=== PATIENT | female | born 1960 | race Caucasian/White ===

== ENCOUNTER 2016-09-03 10:44 | Inpatient (IN) ==
--- NOTE | 2016-09-02 19:44 | Discharge Summary ---
<Amber Rodriguez Theresa - Last Filed: 09/02/16 19:41> Date of Encounter: 09/02/16 - Discharge Diagnosis (1) Arthritis of knee, left Priority: Primary Status: Acute (2) DMII (diabetes mellitus, type 2) Priority: Secondary Status: Chronic Qualifiers: Diabetes mellitus complication status: with unspecified complications Diabetes mellitus terminal gauger supervisor insulin use: unspecified fpc insulin use status Qualified Code(s): E11.8 - Type 2 diabetes mellitus with unspecified complications (3) HTN (hypertension) Priority: Secondary Status: Chronic Qualifiers: Hypertension type: essential hypertension Qualified Code(s): I10 - Essential (primary) hypertension (4) Tobacco abuse Priority: Secondary Status: Chronic (5) Obesity Priority: Secondary Status: Chronic Qualifiers: Obesity type: unspecified obesity type Obesity severity: unspecified obesity severity Qualified Code(s): E66.9 - Obesity, unspecified - Discharge Medications Home Medications: Lisinopril [Zestril] 10 mg PO DAILY 07/19/16 [History] Metformin HCl [Glucophage] 1,000 mg PO BID 07/19/16 [History] Aspirin Enteric Coated [Aspirin EC] 325 mg PO DAILY #21 tablet. 09/02/16 [Rx] OxyCODONE Immed Rel [Roxicodone 5 MG] 5 - 10 mg PO Q6HR PRN #40 tablet 09/02/16 [Rx] Betamethasone Dipropionate 1 appl TP DAILY 09/03/16 [History] Folic Acid 1 mg PO DAILY 09/03/16 [History] Methotrexate [Otrexup] 15 mg PO WE 09/03/16 [History] Allergies/Adverse Reactions: Allergies acetaminophen [From Vicodin] Allergy (Verified 09/03/16 11:18) See Comments HIVES hydrocodone [From Vicodin] Allergy (Verified 09/03/16 11:18) See Comments HIVES methylprednisolone [From Depo-Medrol] Allergy (Verified 09/03/16 11:18) Rash Penicillins Allergy (Verified 09/03/16 11:18) See Comments HIVES Primary care physician: Hoda Ramos, - Patient Status Disposition: Home, Self-Care Condition: Good - Discharge Instructions Follow Up With: Hoda Ramos, FURNITURE SALES CONSULTANT [Primary Care Provider] - - Hospital Course Hospital course: Ms. Mendez is a 56 year old female - Time Spent with Patient Total time spent providing and/or coordinating discharge services: <Jabier Bonds - Last Filed: 09/04/16 06:27> Date of Encounter: 09/04/16 Time of Encounter: 06:27 - Discharge Diagnosis (1) Arthritis of knee, left Priority: Primary Status: Acute (2) DMII (diabetes mellitus, type 2) Priority: Secondary Status: Chronic Qualifiers: Diabetes mellitus complication status: with unspecified complications Diabetes mellitus fpc insulin use: unspecified terminal gauger supervisor insulin use status Qualified Code(s): E11.8 - Type 2 diabetes mellitus with unspecified complications (3) HTN (hypertension) Priority: Secondary Status: Chronic Qualifiers: Hypertension type: essential hypertension Qualified Code(s): I10 - Essential (primary) hypertension (4) Tobacco abuse Priority: Secondary Status: Chronic (5) Obesity Priority: Secondary Status: Chronic Qualifiers: Obesity type: unspecified obesity type Obesity severity: unspecified obesity severity Qualified Code(s): E66.9 - Obesity, unspecified Primary care physician: Hoda Ramos, - Patient Status Functional capacity at discharge: uses cane/walker Overall status at discharge: patient is progressing back to baseline - Hospital Course Hospital course: Ms. Mendez is a 56 year old female The patient had an uneventful postoperative course. They received antibiotics and physical therapy and were discharged in stable condition. There will follow -up in the office in 2 weeks. Aspirin DVT prophylaxis - Time Spent with Patient Total time spent providing and/or coordinating discharge services:
--- NOTE | 2016-09-03 10:52 | History & Physical Report ---
Date of Encounter: 09/03/16 Time of Encounter: 10:51 24 Hour HP Update - Instructions Instructions: If the History and Physical is less than 30 days old and was completed prior to A.M. admission and or procedure and has NOT been updated on calendar day of procedure please complete this update prior to performing procedure. - Update Patient reports changes in Medical Condition: No Changes in examination, assessment, or condition: No Changes in Medication: No Preop tests/diagnostics Reviewed: Yes Surgery Remains Indicated: Yes Consent for Planned Operative Procedure(s) Verified: Yes - Pre-Operative Checklist Preoperative Checklist Indicated: No Prophylactic Antibiotic Ordered: Yes Is VTE Prophylaxis Indicated?: Yes
[2016-09-03] MEDS ORDERED: Clindamycin 900 MG/50 ML 900 MG/50 ML IV.SOLN IVPB ONE (11:14)
[2016-09-03] MEDS ORDERED: Albuterol 2.5 MG/3 ML NEBULIZER IH ONE (11:14)
[2016-09-03] MEDS ORDERED: Lidocaine -MPF 1% 2 ML VIAL ID ONE (11:14)
[2016-09-03] MEDS ORDERED: Ringers Solution, Lactated 1,000 ML IVC SCH ×2 (11:15→15:51)
[2016-09-03] MEDS ORDERED: Famotidine 20 MG/2 ML VIAL IVP ONE (12:13)
[2016-09-03] MEDS ORDERED: Lidocaine -MPF 2% 2 ML VIAL ONE (12:13)
[2016-09-03] MEDS ORDERED: *HR* FentaNYL (PF) 100 MCG/2 ML VIAL ONE (12:13)
[2016-09-03] MEDS ORDERED: *HR* Midazolam HCl 2 MG/2 ML VIAL ONE (12:13)
[2016-09-03] MEDS ORDERED: Ondansetron 4 MG/2 ML VIAL ONE (12:13)
[2016-09-03] MEDS ORDERED: Dexamethasone 4 MG/ML VIAL ONE (12:13)
[2016-09-03] MEDS ORDERED: Gabapentin 300 MG CAPSULE PO ONE (12:14)
[2016-09-03] MEDS ORDERED: *HR* Propofol 200 MG/20 ML VIAL IVP ONE (12:14)
[2016-09-03] MEDS ORDERED: *HR* HYDROmorphone (PF) 1 MG/ML SYRINGE IVP PRN ×2 (12:19→15:51)
[2016-09-03] MEDS ORDERED: Ketorolac 30 MG/ML VIAL ONE ×2 (12:31→14:15)
--- NOTE | 2016-09-03 12:51 | Anesthesia Evaluation PreOp ---
Date of Encounter: 09/03/16 Time of Encounter: 12:45 - Past History Planned Operation: Left TKA Cardiac History: HTN, Hyperlipidemia Pulmonary History: Denies Any Significant HX MONORAIL OPERATOR History: Denies Any Significant HX Other Medical History: Diabetes Type II, Other (Morbid Obesity) Anesthesia History: No Prior Anesthetic Complications : No Alcohol Use: none Drug use: none Medications and Allergies Lisinopril [Zestril] 10 mg PO DAILY 07/19/16 [History] Metformin HCl [Glucophage] 1,000 mg PO BID 07/19/16 [History] Aspirin Enteric Coated [Aspirin EC] 325 mg PO DAILY #21 tablet. 09/02/16 [Rx] OxyCODONE Immed Rel [Roxicodone 5 MG] 5 - 10 mg PO Q6HR PRN #40 tablet 09/02/16 [Rx] Betamethasone Dipropionate 1 appl TP DAILY 09/03/16 [History] Folic Acid 1 mg PO DAILY 09/03/16 [History] Methotrexate [Otrexup] 15 mg PO WE 09/03/16 [History] Allergies acetaminophen [From Vicodin] Allergy (Verified 09/03/16 11:18) See Comments HIVES hydrocodone [From Vicodin] Allergy (Verified 09/03/16 11:18) See Comments HIVES methylprednisolone [From Depo-Medrol] Allergy (Verified 09/03/16 11:18) Rash Penicillins Allergy (Verified 09/03/16 11:18) See Comments HIVES - Meds/Allergy Pre-op Review Medications Reviewed: Yes Allergies Reviewed: Yes Beta Blockers on Current Med List: No Anesthesia Results - Labs Laboratory Tests 08/13/16 08/13/16 15:45 15:45 Hgb 13.8 Hct 41.3 Plt Count 334 Sodium 141 Potassium 4.1 BUN 14 Creatinine 0.85 - Imaging EKG: report reviewed (SR Intraventricular conduction delay) Anesthesia Exam O2 Sat Height 1.63 m Height 1.63 m Height 1.63 m Weight 106.141 kg Weight 106.141 kg Weight 106.141 kg O2 Sat by Pulse Oximetry 96 O2 Sat by Pulse Oximetry 96 O2 Sat by Pulse Oximetry 96 Vital Signs Temp Pulse Resp BP Pulse Ox 98.1 F 81 18 146/86 96 09/03/16 11:14 09/03/16 11:14 09/03/16 11:14 09/03/16 11:14 09/03/16 11:14 Height: 5'4 Weight: 234 lbs NPO (# of Hours): MN Pain Scale: 0 - HEENT Pupil (Motor): Pupils equal, EOMI Mallampati: III Teeth: Normal Oral Opening: Less than or equal to 3 - MONORAIL OPERATOR LOC: Oriented MONORAIL OPERATOR Motor: Normal RUE, Normal LUE, Normal RLE, Normal LLE, Normal Face MONORAIL OPERATOR Sensory: Normal: RUE, LUE, RLE, LLE, Face - Cardiac Rhythm: Regular Murmur: None JVD: No Carotid Bruit: No - Pulmonary Breath Sounds: bilateral Clear Respiratory Effort: Symmetrical Anesthesia Assess/Plan ASA Score: 3 (MO HTN DM) Modified [place] Scale for Level of Consciousness: Cooperative, oriented, and tranquil Anesthetic Plan: General, Regional Monitoring Plan: Standard Monitors Recovery Plan: PACU (Discussed GA and RA, agrees to proceed)
[2016-09-03] MEDS ORDERED: ROPIVACAINE HCL/PF 0.5% 30 ML VIAL ONE (13:11)
[2016-09-03] MEDS ORDERED: Tetracaine/PF 20 MG/2 ML AMPUL ONE (13:11)
--- NOTE | 2016-09-03 13:45 | Anesthesia Procedures ---
Date of Encounter: 09/03/16 Time of Encounter: 12:46 Procedures: Anesthesia - Nerve Block Procedure Date: 09/03/16 Time: 13:20 Pre-op Diagnosis: Left Knee Arthropathy Surgical Procedure: Left TKA Checklist: Correct Patient Identifier Correct side: Left Blood Thinner: No Monitor Applied: EKG, BP, Pulse Oximetry Supplemental Oxygen via Nasal Cannula (L/min): 2 Sedation: Versed (mg): 2 Sedation: Fentanyl (mcg): 100 Indication: Post Op Analgesia Pre-op Neuro Deficits: No Block Type: Femoral, Other (IPACK) Catheter placed: No Depth at skin (cm): 2 Sterile Technique: Yes Ultrasound used: Yes Anatomy identified: Yes Visual spread of Local: Yes Neuro Stimulation: Yes Nerve Stimulator Range: >0.4 - 0.6 mA Smooth Injection of Local: Yes Pain with Injection of Local: No Prep: Chlorhexadine Needle: 22 x 50 mm Stimuplex Local: Tetracaine, Ropivacaine (0.5%) Volume (cc): 30 Number of Attempts: 1 Complications: None/effective block Vitals: Vital Signs/O2 Sat/Glucose, Most Current Temp Pulse Resp BP Pulse Ox 09/03/16 13:28 60 14 120/55 97 09/03/16 13:13 67 16 131/68 96 09/03/16 13:05 75 16 111/63 98 09/03/16 11:17 98.1 F 81 18 146/86 96 09/03/16 11:14 98.1 F 81 18 146/86 96
[2016-09-03] MEDS ORDERED: EPHEDrine 50 MG/ML VIAL ONE (13:58)
[2016-09-03] MEDS ORDERED: *HR* HYDROmorphone 2 MG/ML SYRINGE ONE (14:03)
--- NOTE | 2016-09-03 14:31 | Orthopedic Operative Note ---
Date of procedure: 09/03/16 Pre-op diagnosis: left knee arthritis Post-op diagnosis: same Procedure: Procedure: left Total knee replacement Estimated blood loss: 200 cc Hardware: Metal and polyethylene replacement. Arthrex Femur: 4 Tibia: 3 PS insert: 11 Patella:30 Exam Under anesthesia: full motion no instability Procedural Notes:grade 4 arthritic changes medial compartment grade 3 arthritic changes patellofemoral joint and lateral compartment. Operative procedure: The patient was brought to the operating room and placed on the operating room table. After general anesthesia was administered the operative knee was examined. Findings were noted in the exam under anesthesia. The operative extremity was prepped and draped in sterile surgical fashion. The patient received IV antibiotics prior to skin incision. A standard midline incision was made centered over the patella. The incision was made through the skin and subcutaneous tissue. A medial parapatellar tendon approach was performed. Care was taken to preserve tissue along the medial aspect of the patella. And to protect the patella tendon. The deep MCL was released off the medial tibia. The infra patella fat pad was excised. Knee was brought into flexion. Patient noted to have grade 4 arthritic changes medial compartment grade 3 arthritic changes lateral compartment and patellofemoral joint. The entry hole was made for the intramedullary femoral guide. The guide was seated in 6 degrees of valgus. Anterior cut was made followed by the distal cut. The ACL the PCL the medial and the lateral menisci were excised. The tibia was subluxed forward. The entry hole was made for the intramedullary tibial guide. Guide was seated to resect 2 mm off the more abnormal side. The knee was brought into flexion the distal femur was sized to a 4. The femoral guide was seated, the anterior cut was made followed by the posterior condylar cut, followed by the chamfer cuts. The finishing guide was seated the box cut was made and the lug holes were drilled. The tibia was sized to a 3, the tibial tray was seated and prepared with the large drill followed by the fin cutter. Trial reduction revealed full extension no varus valgus instability with the appropriate 11 PS Zaira. The patella was everted and cut was made at the level of the insertion of the quadriceps and patella tendon. The patella was sized 30 the guide was seated and the lug holes are drilled. Trial reduction revealed excellent patella tracking. All trial components were removed all bony surfaces were irrigated. The tibia was cemented first followed by the femur. The 11 PS Zaira was seated and the knee was brought into full extension. The patella was cemented and held in place with the patellar holding clamp. After the cement had hardened, the knee sat for 2 minutes with a Betadine saline solution. The knee was then irrigated out with 2 L of pulse irrigation. The extensor mechanism was closed with #2 FiberWire suture and #2 PDS suture. The subcutaneous tissue was then irrigated and closed deep with #1 PDS suture superficially with 0 PDS suture and skin was closed with skin flory. The patient was then placed in a sterile dressing and a postoperative brace extubated and transferred to recovery room in stable condition. Anesthesia: GISELLA Surgeon: Jabier Bonds Condition: stable Disposition: PACU
--- NOTE | 2016-09-03 15:23 | Anesthesia Evaluation Post Op ---
Date of Encounter: 09/03/16 Time of Encounter: 15:10 - Vital Signs Vital Signs: Vital Signs/O2 Sat, Most Current Temp Pulse Resp BP Pulse Ox 97.1 F L 104 16 103/77 94 09/03/16 14:57 09/03/16 15:17 09/03/16 15:17 09/03/16 15:17 09/03/16 15:17 - Lungs Lungs: Clear Ascult./Percussion - Airway Airway: Non-obstructed - Cardiovascular Regular Rate - Mental Status Mental Status: Asleep with brisk response to light stimulation - Pain Pain Scale: 0 Pain Scale used: Numeric (1 - 10) - Nausea Vomiting Nausea Vomiting: Not Present - Hydration Hydration: NPO, Has not voided - Discharge PostOp Status: Transfer Patient to floor
[2016-09-03] MEDS ORDERED: MOM Conc 10 ML UD.LIQ PO PRN (15:51)
[2016-09-03] MEDS ORDERED: Sennosides 8.6 MG TABLET PO PRN (15:51)
[2016-09-03] MEDS ORDERED: Dextrose Gel 15 GM PO PRN ×2 (15:51)
[2016-09-03] MEDS ORDERED: *HR* Dextrose 50 % in Water (Syg) 50 ML SYRINGE IVP PRN (15:51)
[2016-09-03] MEDS ORDERED: D5% in Water 1,000 ML IVC PRN (15:51)
[2016-09-03] MEDS ORDERED: *HR* OxyCODONE Immed Rel 5 MG TABLET PO PRN (15:51)
[2016-09-03] MEDS ORDERED: Ondansetron 4 MG/2 ML VIAL IVP PRN (15:51)
[2016-09-03] MEDS ORDERED: Temazepam 15 MG CAPSULE PO PRN (15:51)
[2016-09-03] MEDS ORDERED: Naloxone 0.4 MG/ML INJ IVP PRN (15:51)
[2016-09-03 15:58] LABS: Hematocrit 38.4 % (35.3-44.9)
[2016-09-03] MEDS: *HR* Enoxaparin 30 MG/0.3 ML SYRINGE SQ SCH (16:54)
[2016-09-03] MEDS: Clindamycin 900 MG/50 ML 900 MG/50 ML IV.SOLN IVPB SCH (16:54)
[2016-09-03] MEDS: Insulin LISPRO 300 UNITS/3 ML VIAL SQ SCH (16:55)
[2016-09-03] MEDS ORDERED: *HR* Enoxaparin 30 MG/0.3 ML SYRINGE SQ SCH (18:00)
[2016-09-03] MEDS ORDERED: Insulin LISPRO 300 UNITS/3 ML VIAL SQ SCH (21:00)
[2016-09-03] MEDS: *HR* OxyCODONE Immed Rel 5 MG TABLET PO PRN (21:34)
[2016-09-03] MEDS: *HR* Metformin 500 MG TABLET PO SCH (21:34)
[2016-09-04] MEDS: Clindamycin 900 MG/50 ML 900 MG/50 ML IV.SOLN IVPB SCH (00:31)
[2016-09-04] MEDS: *HR* OxyCODONE Immed Rel 5 MG TABLET PO PRN (03:36)
[2016-09-04 05:01] LABS: Hematocrit 32.3 % (35.3-44.9)
[2016-09-04 05:02] LABS: Hemoglobin 10.8 g/dL (11.5-15.4)
[2016-09-04 05:20] LABS: Calcium 8.2 mg/dL (8.6-10.8); Potassium 4.2 mEq/L (3.5-4.5)
[2016-09-04] MEDS: *HR* Enoxaparin 30 MG/0.3 ML SYRINGE SQ SCH (05:24)
--- NOTE | 2016-09-04 06:28 | Orthopedics Progress Note ---
Date of Encounter: 09/04/16 Time of Encounter: 06:28 - Assessment and Plan (1) Arthritis of knee, left Current Visit: Yes Status: Acute (2) DMII (diabetes mellitus, type 2) Current Visit: Yes Status: Chronic Qualifiers: Diabetes mellitus complication status: with unspecified complications Diabetes mellitus shelter insulin use: unspecified shelter insulin use status Qualified Code(s): E11.8 - Type 2 diabetes mellitus with unspecified complications (3) HTN (hypertension) Current Visit: Yes Status: Chronic Qualifiers: Hypertension type: essential hypertension Qualified Code(s): I10 - Essential (primary) hypertension (4) Tobacco abuse Current Visit: Yes Status: Chronic (5) Obesity Current Visit: Yes Status: Chronic Qualifiers: Obesity type: unspecified obesity type Obesity severity: unspecified obesity severity Qualified Code(s): E66.9 - Obesity, unspecified Subjective Interval history: Patient was seen this morning doing well without complaints. Afebrile vital signs stable. Operative extremity: Neurovascularly intact Dressing clean dry and intact Calves nontender Assessment and plan: Continue with postoperative care Hematocrit 32 discharged today Objective Vital signs: Vital Signs Temp Pulse Resp BP Pulse Ox 09/04/16 03:28 98.3 F 110 21 149/54 93 09/04/16 00:37 108/68 09/04/16 00:35 97.9 F 85 18 97/57 97 09/03/16 21:29 71 96/58 97 09/03/16 18:48 97.7 F 80 17 89/61 95 09/03/16 17:50 97.5 F L 79 16 102/69 97 09/03/16 16:45 97.5 F L 77 17 93/67 97 09/03/16 16:14 97.5 F L 90 17 110/74 95 09/03/16 15:53 96 09/03/16 15:50 97.5 F L 94 17 109/73 96 09/03/16 15:27 97.3 F L 103 16 100/80 95 09/03/16 15:17 104 16 103/77 94 09/03/16 15:07 103 16 128/77 96 09/03/16 14:57 97.1 F L 116 16 135/80 97 09/03/16 13:28 60 14 120/55 97 09/03/16 13:13 67 16 131/68 96 09/03/16 13:05 75 16 111/63 98 09/03/16 11:17 98.1 F 81 18 146/86 96 09/03/16 11:14 98.1 F 81 18 146/86 96 Intake and Output 09/03/16 09/03/16 09/04/16 15:59 23:59 07:59 Intake Total 50 / 50 50 / 50 Output Total 200 / 200 Balance -150 / -150 50 / 50 Intake: IV Fluids 50 / 50 50 / 50 Cleocin Premix 900 MG/50 50 / 50 50 / 50 ML 900 mg In 50 ml @ 50 mls/hr IVPB Q8HR RUTH Rx#: [id number] Output: Urine 0 / 0 Estimated Blood Loss 200 / 200 Other: # Voids 1 1 Weight 106.141 kg Blood Glucose* 143 149 - Labs CBC & BMP: 09/04/16 04:37 09/04/16 04:37 Labs: Abnormal lab results Hgb 10.8 g/dL (11.5-15.4) L D 09/04/16 04:37 Hct 32.3 % (35.3-44.9) L 09/04/16 04:37 Sodium 135 mEq/L (136-145) L 09/04/16 04:37 Creatinine 1.24 mg/dL (0.57-1.11) H 09/04/16 04:37 Est GFR ( Amer) 55 (> 60) L 09/04/16 04:37 Est GFR (Non-Af Amer) 45 (> 60) L 09/04/16 04:37 Glucose 129 mg/dL (70-99) H 09/04/16 04:37 POC Glucose 149 (58-89) H 09/03/16 20:25 Calcium 8.2 mg/dL (8.6-10.8) L 09/04/16 04:37 - VTE Documentation of Mechanical Device: Venous foot pump, device Consult Discharge Plan - Plan Referrals: Hoda Ramos CUSTOMER SERVICE REPRESENTATIVE TEACHER [Primary Care Provider] -
[2016-09-04] MEDS: Insulin LISPRO 300 UNITS/3 ML VIAL SQ SCH (08:35)
[2016-09-04] MEDS: *HR* Metformin 500 MG TABLET PO SCH (08:41)
[2016-09-04] MEDS ORDERED: FluocinoNIDE 0.05% CRM 15 GM TUBE TP SCH (09:00)
[2016-09-04] MEDS ORDERED: Folic Acid 1 MG TABLET PO SCH (09:00)
[2016-09-04 10:50] VITALS: BP 107/73
[2016-09-05] MEDS ORDERED: *HR* Methotrexate 2.5 MG TABLET PO SCH (09:00)
== END 2016-09-04 12:32 | disposition home or self-care (01) | DRG 470 ==
LOC: SAMDAY 10:44 → 3NENU 15:31
PROVIDERS: ADMIT Orthopaedic Surgery; ATTEND Orthopaedic Surgery

== ENCOUNTER 2017-07-29 09:28 | Inpatient (IN) ==
--- NOTE | 2017-07-28 08:44 | Discharge Summary ---
<Mary Benavidez E - Last Filed: 07/28/17 08:42> Date of Encounter: 07/28/17 - Discharge Diagnosis (1) Status post total left knee replacement Priority: Primary Status: Acute (2) Left knee pain Priority: Primary Status: Chronic Qualifiers: Chronicity: chronic Qualified Code(s): M25.562 - Pain in left knee; G89.29 - Other chronic pain; G89.29 - Other chronic pain (3) Allergy to metal Priority: Primary Status: Chronic (4) History of total left knee replacement Priority: Primary Status: Chronic (5) Diabetes mellitus Priority: Secondary Status: Chronic Qualifiers: Diabetes mellitus type: type 2 Diabetes mellitus moth exterminator insulin use: without moth exterminator use Diabetes mellitus complication status: with unspecified complications Qualified Code(s): E11.8 - Type 2 diabetes mellitus with unspecified complications (6) Lichen planus Priority: Secondary Status: Chronic (7) HTN (hypertension) Priority: Secondary Status: Chronic Qualifiers: Hypertension type: unspecified Qualified Code(s): I10 - Essential (primary ) hypertension (8) Tobacco dependence Priority: Secondary Status: Chronic (9) Obesity Priority: Secondary Status: Chronic Qualifiers: Obesity type: unspecified obesity type Obesity classification: unspecified obesity classification Serious obesity comorbidity presence: unspecified whether serious comorbidity present Qualified Code(s): E66.9 - Obesity, unspecified - Hospital Course Hospital course: Ms. Mendez is a 57 year old female - Time Spent with Patient Total time spent providing and/or coordinating discharge services: - Discharge Medications Home Medications: Lisinopril [Zestril] 10 mg PO DAILY 07/19/16 [History] Metformin HCl [Glucophage] 1,000 mg PO BID 07/19/16 [History] Betamethasone Dipropionate 1 appl TP DAILY 09/03/16 [History] Aspirin Enteric Coated [Aspirin EC] 325 mg PO BID 10 Days #20 tablet. [Rx] OxyCODONE Immed Rel [Roxicodone 5 MG] 5 mg PO Q6HR PRN 7 Days #28 tablet [Rx] Allergies/Adverse Reactions: 3 Allergy/AdvReac Type Severity Reaction Status Date / Time acetaminophen [From Vicodin] Allergy See Verified 07/29/17 15:08 Comments hydrocodone [From Vicodin] Allergy See Verified 07/29/17 15:08 Comments methylprednisolone Allergy Rash Verified 07/29/17 15:08 [From Depo-Medrol] Penicillins Allergy See Verified 07/29/17 15:08 Comments Primary care physician: Provider Unassigned - Patient Status Disposition: Home, Self-Care Condition: Good - Discharge Instructions Follow Up With: Unassigned,Provider [Primary Care Provider] - Additional Instructions: Discharge Instructions: Total Knee Replacement Please call [facility] ([phone]), your Primary Care Physician, or report to the Emergency Room if you have any of the following symptoms: Nausea, vomiting, fever greater that 101.5, swelling, chest pain, shortness of breath, increased pain/redness/drainage/odor for your incision site, numbness/ tingling, or any other concerning symptoms. ACTIVITY:Weight-bearing as tolerated. You may progress off support (crutches or walker) as tolerated. MEDICATIONS: Upon discharge resume your home medications. Take all the medications as prescribed. Take a stool softener if taking narcotic pain medications. Stool softeners are only effective if you drink enough fluids. Drink 6-8 glass of water or fluids a day, unless this is not allowed for another health problem. Despite using stool softeners, if you haven't had a bowel movement in 3 days, please switch to a gentle laxative. Gentle laxatives are sold over the counter. You should have a bowel movement within 24 hours, if not call the office. You will be discharged from the hospital with a prescription for pain medication. You are encouraged to decrease the use of narcotic pain medication as tolerated. Should you require a refill, please call the office. [facility] prescribes narcotic pain medication for only 4-6 weeks after surgery. If you require pain medication beyond this time period, you may be referred to your Primary Care Physician or to the Pain Clinic for further evaluation. Plan ahead for refills on pain medication as many narcotics either need to be picked up at the office or mailed. It is best to call 48-72 hours in advance of needing a prescription refill so you don't run out of medication. To help control the post-operative pain, you may take NSAIDs (Aleve,Advil, Motrin, Ibuprofen, Naprosyn) or Tylenol as prescribed on the bottle in addition to the pain medication. ANTICOAGULATION (blood thinners): Continue your Aspirin, Lovenox or Coumadin as prescribed to help prevent a blood clot in the leg or in the lungs. As long as your incision remains dry and you tolerate the NSAIDs (Aleve, Advil, Motrin, ibuprofen, naprosyn), it is OK to use the NSAIDS while you are taking your anticoagulation medication. Should your incision start to drain, stop the NSAID and contact our office. Common symptoms of blood clot in the legs include: localized pain, swelling, calf tenderness, redness or discoloration of the skin. Blood clot in the lung symptoms include: shortness of breath, rapid pulse, sweating, and chest pain that worsens with deep breathing, coughing up blood, lightheadedness, feelings of anxiety. If you experience any of these symptoms notify your physician immediately, go to the emergency room, or if having trouble breathing, call 911. WOUND CARE: Leave the dressing on for 7 to 10days. You may change the dressing if it becomes saturated greater than 50%. Do not get the dressing wet at anytime. Wash your hands with antibacterial soap, rinse and dry prior to any wound care. If you have flory the visiting nurse or rehab facility can remove the stapes 10-14 days after surgery and place steri-strips across the wound. Leave the steri-strips in place until they fall off on their won. You may let water from the shower run on top of the steri-strips. If you do not have a visiting nurse or rehab facility, you will need to return to the office at 10-14 days for the flory to be removed. If you have itching or redness around the dressing call the office. FOLLOW-UP: Please follow up with your surgeon in the orthopedic clinic in 4 weeks from the day of surgery. If you have flory that need to be removed, you will need to come back to the office in 10-14 days from the day of surgery. <Jabier Bonds - Last Filed: 07/31/17 08:10> Orders not resulted at time of discharge: Pending orders 07/29/17 01:00 XR knee LT limited 1-2V [XR] Routine Hemoglobin and Hematocrit [HEME] Routine Date of Encounter: 07/31/17 Time of Encounter: 08:09 - Discharge Diagnosis (1) Morbid obesity with BMI of 40.0-44.9, adult Priority: Secondary Status: Chronic (2) DMII (diabetes mellitus, type 2) Priority: Secondary Status: Chronic Qualifiers: Diabetes mellitus moth exterminator insulin use: unspecified moth exterminator insulin use status Diabetes mellitus complication status: with unspecified complications Qualified Code(s): E11.8 - Type 2 diabetes mellitus with unspecified complications (3) HTN (hypertension) Priority: Secondary Status: Chronic Qualifiers: Hypertension type: essential hypertension Qualified Code(s): I10 - Essential (primary) hypertension (4) Tobacco abuse Priority: Secondary Status: Chronic (5) History of total left knee replacement Priority: Primary Status: Chronic (6) Left knee pain Priority: Secondary Status: Chronic Qualifiers: Chronicity: chronic Qualified Code(s): M25.562 - Pain in left knee; G89.29 - Other chronic pain; G89.29 - Other chronic pain (7) Allergy to metal Priority: Primary Status: Chronic (8) Diabetes mellitus Priority: Secondary Status: Chronic Qualifiers: Diabetes mellitus type: type 2 Diabetes mellitus fdc insulin use: without fdc use Diabetes mellitus complication status: with unspecified complications Qualified Code(s): E11.8 - Type 2 diabetes mellitus with unspecified complications (9) Lichen planus Priority: Secondary Status: Chronic (10) Tobacco dependence Priority: Secondary Status: Chronic - Hospital Course Hospital course: Ms. Mendez is a 57 year old female Status post revision total knee replacement. The patient had an uneventful postoperative course. They received antibiotics and physical therapy and were discharged in stable condition. There will follow -up in the office in 2 weeks. - Time Spent with Patient Total time spent providing and/or coordinating discharge services: Primary care physician: Provider Unassigned - Patient Status Functional capacity at discharge: uses cane/walker Overall status at discharge: patient is progressing back to baseline
[2017-07-29] MEDS ORDERED: Albuterol 2.5 MG/3 ML NEBULIZER IH ONE (09:44)
[2017-07-29] MEDS ORDERED: Clindamycin 900 MG/50 ML 900 MG/50 ML IV.SOLN IVPB ONE (09:44)
[2017-07-29] MEDS ORDERED: Ringers Solution, Lactated 1,000 ML IVC SCH ×2 (09:45→14:46)
[2017-07-29] MEDS ORDERED: Famotidine 20 MG/2 ML VIAL IVP ONE (10:33)
[2017-07-29] MEDS ORDERED: Metoclopramide 10 MG/2 ML VIAL IVP ONE (10:33)
[2017-07-29] MEDS ORDERED: *HR* FentaNYL (PF) 100 MCG/2 ML VIAL ONE (10:34)
[2017-07-29] MEDS ORDERED: *HR* Midazolam HCl 2 MG/2 ML VIAL ONE (10:34)
[2017-07-29] MEDS ORDERED: Acetaminophen IV 1,000 MG/100 ML INFUS..BTL IVPB ONE (10:34)
[2017-07-29] MEDS ORDERED: *HR* Propofol 200 MG/20 ML VIAL IVP ONE (10:34)
[2017-07-29] MEDS ORDERED: Pregabalin 75 MG CAPSULE PO ONE (10:34)
--- NOTE | 2017-07-29 10:35 | Anesthesia Evaluation PreOp ---
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 MO/BMI = 42) Anesthesia History: No Prior Anesthetic Complications, Past Anesthesia (JOSAFAT 1987 , Lisa, Eye implants/Cataracts, , Appy, L-TKR 09/03/2016) Alcohol Use: none Drug use: none Medications and Allergies Lisinopril [Zestril] 10 mg PO DAILY 07/19/16 [History] Metformin HCl [Glucophage] 1,000 mg PO BID 07/19/16 [History] Aspirin Enteric Coated [Aspirin EC] 325 mg PO DAILY #21 tablet. 09/02/16 [Rx] OxyCODONE Immed Rel [Roxicodone 5 MG] 5 - 10 mg PO Q6HR PRN #40 tablet 09/02/16 [Rx] Betamethasone Dipropionate 1 appl TP DAILY 09/03/16 [History] Folic Acid 1 mg PO DAILY 09/03/16 [History] Methotrexate [Otrexup] 15 mg PO WE 09/03/16 [History] Aspirin Enteric Coated [Aspirin EC] 325 mg PO BID 10 Days #20 tablet. [Rx] OxyCODONE Immed Rel [Roxicodone 5 MG] 5 mg PO Q6HR PRN 7 Days #28 tablet [Rx] 3 Allergy/AdvReac Type Severity Reaction Status Date / Time acetaminophen [From Vicodin] Allergy See Verified 09/03/16 11:18 Comments hydrocodone [From Vicodin] Allergy See Verified 09/03/16 11:18 Comments methylprednisolone Allergy Rash Verified 09/03/16 11:18 [From Depo-Medrol] Penicillins Allergy See Verified 09/03/16 11:18 Comments - Meds/Allergy Pre-op Review Medications Reviewed: Yes Allergies Reviewed: Yes Beta Blockers on Current Med List: No Anesthesia Results - Labs Laboratory Tests 07/25/17 07/25/17 07/25/17 14:54 14:54 14:54 WBC 12.7 H Hgb 14.3 Hct 42.0 Plt Count 315 PT 10.7 INR 1.0 APTT 29.2 Sodium 139 Potassium 4.1 Chloride 110 H Carbon Dioxide 24 BUN 12 Est GFR (Non-Af Amer) > 60 Est Mean Plasma Glucose Hemoglobin A1c 07/25/17 14:54 WBC Hgb Hct Plt Count PT INR APTT Sodium Potassium Chloride Carbon Dioxide BUN Est GFR (Non-Af Amer) Est Mean Plasma Glucose 143 Hemoglobin A1c 6.6 H - Imaging EKG: image reviewed (81bpm SR, IVCD) Anesthesia Exam O2 Sat Height 1.6 m Height 1.6 m Height 1.6 m Weight 107.955 kg Weight 107.955 kg Weight 107.955 kg O2 Sat by Pulse Oximetry 96 Vital Signs Temp Pulse Resp BP Pulse Ox 97.8 F 83 18 139/85 96 07/29/17 09:50 07/29/17 09:50 07/29/17 09:50 07/29/17 09:50 07/29/17 09:50 Height: 5'3" Weight: 238# BMI = 42 NPO (# of Hours): MNOc - HEENT Pupil (Motor): Pupils equal, EOMI Mallampati: III Teeth: Missing, Poor dentition Oral Opening: Greater than 3 - GUN WELDER LOC: Oriented GUN WELDER Motor: Normal RUE, Normal LUE, Normal RLE, Normal LLE, Normal Face GUN WELDER Sensory: Normal: RUE, LUE, RLE, LLE, Face - Cardiac Rhythm: Regular Murmur: None - Pulmonary Breath Sounds: bilateral Clear Respiratory Effort: Symmetrical Anesthesia Assess/Plan ASA Score: 3 (BMI/MO = 42, DM,) Modified Markus Scale for Level of Consciousness: Cooperative, oriented, and tranquil Anesthetic Plan: General, Regional (Femoral Nerve Block) Monitoring Plan: Standard Monitors Anes Supervising Prov Stmt: Pt seen/evaluated, R&B Discussed, questions answered and consent obtained. Wayne Ferrell MD
--- NOTE | 2017-07-29 11:32 | History & Physical Report ---
Date of Encounter: 07/29/17 Time of Encounter: 11:31 24 Hour HP Update - Instructions Instructions: If the History and Physical is less than 30 days old and was completed prior to A.M. admission and or procedure and has NOT been updated on calendar day of procedure please complete this update prior to performing procedure. - Update Patient reports changes in Medical Condition: No Changes in examination, assessment, or condition: No Changes in Medication: No Preop tests/diagnostics Reviewed: Yes Surgery Remains Indicated: Yes Consent for Planned Operative Procedure(s) Verified: Yes - Pre-Operative Checklist Preoperative Checklist Indicated: No Prophylactic Antibiotic Ordered: Yes Is VTE Prophylaxis Indicated?: Yes
[2017-07-29] MEDS ORDERED: Bupivacaine/Clonidine Syringe 1 EACH SYRINGE ONE (11:46)
[2017-07-29] MEDS ORDERED: ROPIVACAINE HCL/PF 0.5% 30 ML VIAL ONE (11:46)
--- NOTE | 2017-07-29 12:14 | Anesthesia Procedures ---
Date of Encounter: 07/29/17 Time of Encounter: 12:00 Procedures: Anesthesia - Nerve Block Procedure Date: 07/29/17 Time: 12:00 Allergies/Adv Reactions: acetaminophen, hydrocodone, methylprednisolone, PCN Pre-op Diagnosis: aseptic loosening of left knee hardware Surgical Procedure: Left TKA revision Checklist: Correct Patient Identifier, Correct procedure, History checked Correct side: Left Blood Thinner: Yes Monitor Applied: EKG, BP, Pulse Oximetry Supplemental Oxygen via Nasal Cannula (L/min): 2 Sedation: Versed (mg): 2 Sedation: Fentanyl (mcg): 100 Indication: Post Op Analgesia Pre-op Neuro Deficits: Yes Block Type: Femoral, Other (IPAC) Catheter placed: No Sterile Technique: Yes Ultrasound used: Yes Anatomy identified: Yes Visual spread of Local: Yes Neuro Stimulation: Yes Nerve Stimulator Range: 0.2 - 0.4 mA Blood on Needle Aspiration: No Smooth Injection of Local: Yes Pain with Injection of Local: No Prep: Chlorhexadine Needle: 22 x 50 mm Stimuplex, 21 x 100 mm Stimuplex Local: 0.25% Bupivicaine w/Clonidine 20 mcg/cc (20ml IPAC), Ropivacaine (0.5% 30ml femoral) Volume (cc): 50 Number of Attempts: 1 Complications: None/effective block Vitals: Vital Signs Temperature 97.8 F 07/29/17 09:50 Pulse Rate 83 07/29/17 09:50 Respiratory Rate 18 07/29/17 09:50 Blood Pressure 139/85 07/29/17 09:50 O2 Sat by Pulse Oximetry 96 07/29/17 09:50 Temperature 97.8 F 07/29/17 09:50 Pulse Rate 75 07/29/17 12:13 Respiratory Rate 12 07/29/17 12:13 Blood Pressure 135/64 07/29/17 12:13 O2 Sat by Pulse Oximetry 99 07/29/17 12:13
[2017-07-29] MEDS ORDERED: Ethanol\\Acetic Acid\\Na Ace\\Ben 1,000 ML IRRIG.SOLN IR ONE (12:15)
[2017-07-29] MEDS ORDERED: Lidocaine -MPF 2% 2 ML VIAL ONE (12:16)
[2017-07-29] MEDS ORDERED: Lidocaine -MPF 4% 5 ML AMPUL ONE (12:16)
[2017-07-29] MEDS ORDERED: *HR* PHENYLEPHRINE 1,000 MCG/10 ML SYRINGE IVP ONE (12:50)
[2017-07-29] MEDS ORDERED: Ondansetron 4 MG/2 ML VIAL ONE (13:03)
[2017-07-29] MEDS ORDERED: Dexamethasone 4 MG/ML VIAL ONE (13:03)
--- NOTE | 2017-07-29 13:30 | Orthopedic Operative Note ---
Date of procedure: 07/29/17 Pre-op diagnosis: Painful left total knee/metal allergy Post-op diagnosis: same Procedure: Procedure: Left revision total knee Estimated blood loss: 200 Hardware: Metal and polyethylene replacement. Biomet SSK femur: 60, 12 x 80 stem Tibia: 10 x 80 stem, 67 Constrained Zaira: 10 Exam Under anesthesia: Full flexion and extension no varus valgus instability. Procedural Notes: No obvious abnormalities identified. Operative procedure: The patient was brought to the operating room and placed on the operating room table. After general anesthesia was administered the operative knee was examined. Findings were noted in the exam under anesthesia. The operative extremity was prepped and draped in sterile surgical fashion. The patient received IV antibiotics prior to skin incision. A standard midline incision was made centered over the patella through the old incision. The incision was made through the skin and subcutaneous tissue. A medial parapatellar tendon approach was performed. Care was taken to preserve tissue along the medial aspect of the patella. And to protect the patella tendon. The deep MCL was released off the medial tibia. The infra patella fat pad was excised. Fluid was encountered this was normal joint fluid, Cultures were obtained and gram . The knee was brought into flexion the poly-was removed. The interface between the patient's femoral component and distal femur were disrupted with a osteotome and oscillating saw. Femoral component was removed removed without significant bone loss. Attention was then turned to the tibial component. The same technique was used to remove the tibial component by disrupting the interface between the patient's tibial component and the patients proximal tibia. was removed without significant bone loss. The tibia was sized to a 67 it was reamed up to a 10 x 80 Trial had good fit and fixation. The femur was sized to a 60, was reamed up to a 12 x 80 The finishing guide was seated and the box cut was made. The trial had good fit and fixation. Both trial components were seated and the 10 constrained Zaira was seated and secured. The knee had full flexion and full extension with no instability. Patella had excellent patella tracking. The trial components were removed. The knee sat for 2 minutes with a Betadine saline solution. It was irrigated out with 2 L of pulse irrigation. The components were assembled on the back table, the tibia cemented first followed by the femur. The 10 constrained liner was seated and secure. The knee was brought to full extension while the cement hardened. After the cement hardened the knee was irrigated out again. The extensor mechanism was closed with a running #2 PDS suture. The deep tissue was irrigated and closed deep with #1 PDS suture superficially with 0 PDS suture. The skin was closed with skin flory. The patient was placed in a sterile dressing and postoperative brace. They were extubated and transferred to recovery room in stable condition. Anesthesia: GETA Surgeon: Jabier Bonds Was there an assistant women's soccer coach present: Yes Claims Manager: Mary Benavidez Estimated blood loss (cc): 200 Condition: stable Disposition: PACU
[2017-07-29] MEDS ORDERED: *HR* OxyCODONE Immed Rel 5 MG TABLET PO ONE (14:15)
--- NOTE | 2017-07-29 14:37 | Anesthesia Evaluation Post Op ---
Date of Encounter: 07/29/17 Time of Encounter: 14:35 - Vital Signs Vital Signs: Vital Signs Temperature 97.8 F 07/29/17 09:50 Pulse Rate 83 07/29/17 09:50 Respiratory Rate 18 07/29/17 09:50 Blood Pressure 139/85 07/29/17 09:50 O2 Sat by Pulse Oximetry 96 07/29/17 09:50 Temperature 98.0 F 07/29/17 14:34 Pulse Rate 87 07/29/17 14:34 Respiratory Rate 18 07/29/17 14:34 Blood Pressure 128/94 07/29/17 14:34 O2 Sat by Pulse Oximetry 99 07/29/17 14:34 - Lungs Lungs: Clear Ascult./Percussion - Airway Airway: Non-obstructed - Cardiovascular Regular Rate - Mental Status Mental Status: Alert & Oriented, Answers Appropriately - Pain Pain Scale: 0 Pain Scale used: Numeric (1 - 10) - Nausea Vomiting Nausea Vomiting: Not Present - Hydration Hydration: Ice chips, Has not voided - Discharge PostOp Status: Transfer Patient to floor
[2017-07-29] MEDS ORDERED: D5% in Water 1,000 ML IVC PRN (14:46)
[2017-07-29] MEDS ORDERED: traMADol 50 MG TABLET PO PRN (14:46)
[2017-07-29] MEDS ORDERED: MOM Conc 10 ML UD.LIQ PO PRN (14:46)
[2017-07-29] MEDS ORDERED: Naloxone 0.4 MG/ML INJ IVP PRN (14:46)
[2017-07-29] MEDS ORDERED: *HR* Dextrose 50 % in Water (Syg) 50 ML SYRINGE IVP PRN (14:46)
[2017-07-29] MEDS ORDERED: Dextrose Gel 15 GM/37.5 ML TUBE PO PRN ×2 (14:46)
[2017-07-29] MEDS ORDERED: Ondansetron 4 MG/2 ML VIAL IVP PRN (14:46)
[2017-07-29] MEDS ORDERED: *HR* OxyCODONE/APAP 5/325 TABLET PO PRN (14:46)
[2017-07-29] MEDS ORDERED: Sennosides 8.6 MG TABLET PO PRN (14:46)
[2017-07-29] MEDS ORDERED: Temazepam 15 MG CAPSULE PO PRN (14:46)
[2017-07-29 14:52] LABS: Hematocrit 40.9 % (35.3-44.9); Hemoglobin 13.9 g/dL (11.5-15.4)
[2017-07-29] MEDS: Clindamycin 900 MG/50 ML 900 MG/50 ML IV.SOLN IVPB SCH ×2 (16:00→23:49)
[2017-07-29] MEDS: *HR* Enoxaparin 30 MG/0.3 ML SYRINGE SQ SCH (17:07)
[2017-07-29] MEDS: Insulin LISPRO 300 UNITS/3 ML VIAL SQ SCH ×2 (17:07→21:06)
[2017-07-29] MEDS ORDERED: *HR* Enoxaparin 30 MG/0.3 ML SYRINGE SQ SCH (18:00)
[2017-07-29] MEDS: *HR* Metformin 500 MG TABLET PO SCH (20:25)
[2017-07-29] MEDS: *HR* OxyCODONE Immed Rel 5 MG TABLET PO PRN (23:49)
[2017-07-30 02:11] LABS: Hematocrit 36.8 % (35.3-44.9); Hemoglobin 12.8 g/dL (11.5-15.4)
[2017-07-30 02:25] LABS: BUN/Creatinine Ratio 17 (6-26); Blood Urea Nitrogen 16 mg/dL (6-20); Carbon Dioxide 24 mEq/L (23-29); Chloride 105 mEq/L (98-107); Glucose 131 mg/dL (70-105); Osmolality,Calculated 283 (280-300); Potassium 5.2 mEq/L (3.5-5.1); Sodium 135 mEq/L (136-145); eGFR For African Americans > 60 (> 60); eGFR For Non-African Americans > 60 (> 60)
[2017-07-30] MEDS: *HR* Enoxaparin 30 MG/0.3 ML SYRINGE SQ SCH ×2 (05:49→17:28)
--- NOTE | 2017-07-30 06:25 | Orthopedics Progress Note ---
Date of Encounter: 07/30/17 Time of Encounter: 06:25 - Assessment and Plan (1) Morbid obesity with BMI of 40.0-44.9, adult Current Visit: Yes Status: Chronic (2) DMII (diabetes mellitus, type 2) Current Visit: No Status: Chronic Qualifiers: Diabetes mellitus gas brazer insulin use: unspecified gas brazer insulin use status Diabetes mellitus complication status: with unspecified complications Qualified Code(s): E11.8 - Type 2 diabetes mellitus with unspecified complications (3) HTN (hypertension) Current Visit: No Status: Chronic Qualifiers: Hypertension type: essential hypertension Qualified Code(s): I10 - Essential (primary) hypertension (4) Tobacco abuse Current Visit: No Status: Chronic (5) History of total left knee replacement Current Visit: No Status: Chronic (6) Left knee pain Current Visit: No Status: Chronic Qualifiers: Chronicity: chronic Qualified Code(s): M25.562 - Pain in left knee; G89.29 - Other chronic pain; G89.29 - Other chronic pain (7) Allergy to metal Current Visit: No Status: Chronic (8) Diabetes mellitus Current Visit: No Status: Chronic Qualifiers: Diabetes mellitus type: type 2 Diabetes mellitus nursing home insulin use: without gas brazer use Diabetes mellitus complication status: with unspecified complications Qualified Code(s): E11.8 - Type 2 diabetes mellitus with unspecified complications (9) Lichen planus Current Visit: No Status: Chronic (10) Tobacco dependence Current Visit: No Status: Chronic Subjective Interval history: Patient was seen this morning doing well without complaints. Afebrile vital signs stable. Operative extremity: Neurovascularly intact Dressing clean dry and intact Calves nontender Assessment and plan: Continue with postoperative care Hematocrit 36 Objective Vital signs: Vital Signs Temp Pulse Resp BP Pulse Ox 07/30/17 03:51 98.4 F 79 17 124/66 94 07/30/17 00:46 98.3 F 83 18 104/59 94 07/29/17 18:07 98.9 F 76 14 121/73 95 07/29/17 16:43 97.6 F 88 14 142/46 96 07/29/17 15:53 98.3 F 82 16 133/81 97 07/29/17 15:17 99.0 F 85 14 141/80 95 07/29/17 14:34 98.0 F 87 18 128/94 99 07/29/17 14:24 99.0 F 80 18 126/64 100 07/29/17 14:14 99.0 F 88 18 118/67 100 07/29/17 14:04 97.4 F L 108 18 133/76 100 07/29/17 12:25 71 14 125/64 99 07/29/17 12:13 75 12 135/64 99 07/29/17 11:59 67 13 141/62 97 07/29/17 11:47 78 16 130/73 97 07/29/17 09:50 97.8 F 83 18 139/85 96 Intake and Output 07/29/17 07/29/17 07/30/17 15:59 23:59 07:59 Intake Total 50 / 50 50 / 50 Output Total 200 / 200 300 / 300 Balance -150 / -150 50 / 50 -300 / -300 Intake: IV Fluids 50 / 50 50 / 50 Cleocin Premix 900 MG/50 ML 900 50 / 50 50 / 50 mg In 50 ml @ 50 mls/hr IVPB Q8HR R[facility] Rx#:[id number] Oral 0 / 0 Output: Urine 300 / 300 Estimated Blood Loss 200 / 200 Other: # Voids 1 1 Weight 107.955 kg Blood Glucose* 143 220 - Labs CBC & BMP: 07/30/17 01:43 07/30/17 01:43 Labs: Abnormal lab results Sodium 135 mEq/L (136-145) L 07/30/17 01:43 Potassium 5.2 mEq/L (3.5-5.1) H 07/30/17 01:43 Glucose 131 mg/dL (70-105) H 07/30/17 01:43 POC Glucose 220 mg/dL (70-99) H 07/29/17 20:37 - VTE Documentation of Mechanical Device: Venous foot pump, device Consult Discharge Plan - Plan Referrals: Unassigned,Provider [Primary Care Provider] -
[2017-07-30] MEDS: Insulin LISPRO 300 UNITS/3 ML VIAL SQ SCH ×4 (07:54→21:02)
[2017-07-30] MEDS: *HR* Metformin 500 MG TABLET PO SCH ×2 (07:54→19:50)
[2017-07-30] MEDS: *HR* OxyCODONE Immed Rel 5 MG TABLET PO PRN ×4 (09:25→23:12)
[2017-07-30] MEDS: FluocinoNIDE 0.05% CRM 15 GM TUBE TP SCH ×2 (09:25→19:50)
[2017-07-31 01:11] LABS: Hematocrit 37.9 % (35.3-44.9); Hemoglobin 12.9 g/dL (11.5-15.4)
[2017-07-31 01:29] LABS: BUN/Creatinine Ratio 18 (6-26); Blood Urea Nitrogen 17 mg/dL (6-20); Calcium 9.1 mg/dL (8.6-10.3); Carbon Dioxide 24 mEq/L (23-29); Chloride 104 mEq/L (98-107); Glucose 140 mg/dL (70-105); Osmolality,Calculated 284 (280-300); Potassium 4.3 mEq/L (3.5-5.1); Sodium 135 mEq/L (136-145); eGFR For African Americans > 60 (> 60); eGFR For Non-African Americans > 60 (> 60)
[2017-07-31] MEDS: *HR* OxyCODONE Immed Rel 5 MG TABLET PO PRN ×2 (03:03→07:36)
[2017-07-31] MEDS: *HR* Enoxaparin 30 MG/0.3 ML SYRINGE SQ SCH (04:58)
[2017-07-31 06:43] VITALS: BP 146/80
[2017-07-31] MEDS: Insulin LISPRO 300 UNITS/3 ML VIAL SQ SCH (07:07)
[2017-07-31] MEDS: *HR* Metformin 500 MG TABLET PO SCH (07:36)
[2017-07-31] MEDS: FluocinoNIDE 0.05% CRM 15 GM TUBE TP SCH (07:37)
--- NOTE | 2017-07-31 08:10 | Orthopedics Progress Note ---
Date of Encounter: 07/31/17 Time of Encounter: 08:10 - Assessment and Plan (1) Morbid obesity with BMI of 40.0-44.9, adult Current Visit: Yes Status: Chronic (2) DMII (diabetes mellitus, type 2) Current Visit: No Status: Chronic Qualifiers: Diabetes mellitus terminal manager insulin use: unspecified terminal manager insulin use status Diabetes mellitus complication status: with unspecified complications Qualified Code(s): E11.8 - Type 2 diabetes mellitus with unspecified complications (3) HTN (hypertension) Current Visit: No Status: Chronic Qualifiers: Hypertension type: essential hypertension Qualified Code(s): I10 - Essential (primary) hypertension (4) Tobacco abuse Current Visit: No Status: Chronic (5) History of total left knee replacement Current Visit: No Status: Chronic (6) Left knee pain Current Visit: No Status: Chronic Qualifiers: Chronicity: chronic Qualified Code(s): M25.562 - Pain in left knee; G89.29 - Other chronic pain; G89.29 - Other chronic pain (7) Allergy to metal Current Visit: No Status: Chronic (8) Diabetes mellitus Current Visit: No Status: Chronic Qualifiers: Diabetes mellitus type: type 2 Diabetes mellitus retirement insulin use: without terminal manager use Diabetes mellitus complication status: with unspecified complications Qualified Code(s): E11.8 - Type 2 diabetes mellitus with unspecified complications (9) Lichen planus Current Visit: No Status: Chronic (10) Tobacco dependence Current Visit: No Status: Chronic Subjective Interval history: Patient was seen this morning doing well without complaints. Afebrile vital signs stable. Operative extremity: Neurovascularly intact Dressing clean dry and intact Calves nontender Assessment and plan: Continue with postoperative care Discharge today Objective Vital signs: Vital Signs Temp Pulse Resp BP Pulse Ox 07/31/17 06:41 97.8 F 81 20 146/80 94 07/31/17 05:01 98.2 F 87 16 165/71 92 07/30/17 23:51 97.9 F 84 16 131/79 93 07/30/17 19:44 97.5 F L 74 18 149/80 95 07/30/17 14:45 98.1 F 76 18 119/68 94 07/30/17 10:49 97.8 F 73 18 133/50 95 Intake and Output 07/30/17 07/31/17 07/31/17 23:59 07:59 15:59 Intake Total 220 / 220 50 / 50 Balance 220 / 220 50 / 50 Intake: Oral 220 / 220 50 / 50 Other: Meal Dinner Percent of Meal Consumed 85% # Voids 1 1 Blood Glucose* 126 130 - Labs CBC & BMP: 07/31/17 00:58 07/31/17 00:58 Labs: Abnormal lab results Sodium 135 mEq/L (136-145) L 07/31/17 00:58 Glucose 140 mg/dL (70-105) H 07/31/17 00:58 POC Glucose 130 mg/dL (70-99) H 07/31/17 06:56 - VTE Documentation of Mechanical Device: Venous foot pump, device Consult Discharge Plan - Plan Additional Instructions: Discharge Instructions: Total Knee Replacement Please call [facility] ([phone]), your Primary Care Physician, or report to the Emergency Room if you have any of the following symptoms: Nausea, vomiting, fever greater that 101.5, swelling, chest pain, shortness of breath, increased pain/redness/drainage/odor for your incision site, numbness/ tingling, or any other concerning symptoms. ACTIVITY:Weight-bearing as tolerated. You may progress off support (crutches or walker) as tolerated. MEDICATIONS: Upon discharge resume your home medications. Take all the medications as prescribed. Take a stool softener if taking narcotic pain medications. Stool softeners are only effective if you drink enough fluids. Drink 6-8 glass of water or fluids a day, unless this is not allowed for another health problem. Despite using stool softeners, if you haven't had a bowel movement in 3 days, please switch to a gentle laxative. Gentle laxatives are sold over the counter. You should have a bowel movement within 24 hours, if not call the office. You will be discharged from the hospital with a prescription for pain medication. You are encouraged to decrease the use of narcotic pain medication as tolerated. Should you require a refill, please call the office. [facility] prescribes narcotic pain medication for only 4-6 weeks after surgery. If you require pain medication beyond this time period, you may be referred to your Primary Care Physician or to the Pain Clinic for further evaluation. Plan ahead for refills on pain medication as many narcotics either need to be picked up at the office or mailed. It is best to call 48-72 hours in advance of needing a prescription refill so you don't run out of medication. To help control the post-operative pain, you may take NSAIDs (Aleve,Advil, Motrin, Ibuprofen, Naprosyn) or Tylenol as prescribed on the bottle in addition to the pain medication. ANTICOAGULATION (blood thinners): Continue your Aspirin, Lovenox or Coumadin as prescribed to help prevent a blood clot in the leg or in the lungs. As long as your incision remains dry and you tolerate the NSAIDs (Aleve, Advil, Motrin, ibuprofen, naprosyn), it is OK to use the NSAIDS while you are taking your anticoagulation medication. Should your incision start to drain, stop the NSAID and contact our office. Common symptoms of blood clot in the legs include: localized pain, swelling, calf tenderness, redness or discoloration of the skin. Blood clot in the lung symptoms include: shortness of breath, rapid pulse, sweating, and chest pain that worsens with deep breathing, coughing up blood, lightheadedness, feelings of anxiety. If you experience any of these symptoms notify your physician immediately, go to the emergency room, or if having trouble breathing, call 911. WOUND CARE: Leave the dressing on for 7 to 10days. You may change the dressing if it becomes saturated greater than 50%. Do not get the dressing wet at anytime. Wash your hands with antibacterial soap, rinse and dry prior to any wound care. If you have flory the visiting nurse or rehab facility can remove the stapes 10-14 days after surgery and place steri-strips across the wound. Leave the steri-strips in place until they fall off on their won. You may let water from the shower run on top of the steri-strips. If you do not have a visiting nurse or rehab facility, you will need to return to the office at 10-14 days for the flory to be removed. If you have itching or redness around the dressing call the office. FOLLOW-UP: Please follow up with your surgeon in the orthopedic clinic in 4 weeks from the day of surgery. If you have flory that need to be removed, you will need to come back to the office in 10-14 days from the day of surgery. Referrals: Unassigned,Provider [Primary Care Provider] -
== END 2017-07-31 11:33 | disposition home or self-care (01) | DRG 467 ==
LOC: SAMDAY 09:28 → 3NENU 14:46
PROVIDERS: ADMIT Orthopaedic Surgery; ATTEND Orthopaedic Surgery